=== PATIENT | male | born 1955 | race Caucasian/White ===

== ENCOUNTER 2023-03-04 08:54 | Outpatient (CLI) | payer MEDICARE | END 2023-03-04 08:55 | disposition home or self-care (01) | LOC: BICULT 08:54 | PROVIDERS: ATTEND Family Medicine | DX: Z13.6 Encounter for screening for cardiovascular disorders (principal); Z12.2 Encounter for screening for malignant neoplasm of respiratory organs; F17.210 Nicotine dependence, cigarettes, uncomplicated | CPT/HCPCS: 71271; 76775 ==

== ENCOUNTER 2024-03-04 09:53 | Outpatient (CLI) | payer MEDICARE | END 2024-03-04 09:54 | disposition home or self-care (01) | LOC: BICCT 09:53 | PROVIDERS: ATTEND Family Medicine | DX: Z12.2 Encounter for screening for malignant neoplasm of respiratory organs (principal); F17.210 Nicotine dependence, cigarettes, uncomplicated; R91.1 Solitary pulmonary nodule | CPT/HCPCS: 71271 ==

== ENCOUNTER 2024-06-21 09:28 | Outpatient (CLI) | payer MEDICARE | END 2024-06-21 09:29 | disposition home or self-care (01) | LOC: BICCT 09:28 | PROVIDERS: ATTEND Family Medicine | DX: R91.1 Solitary pulmonary nodule (principal) | CPT/HCPCS: 71250 ==